=== PATIENT | female | born 1980 | race Hispanic/Latino ===

== ENCOUNTER 2017-05-01 12:54 | Emergency (ER) | payer BC, OTHER ==
[2017-05-01 13:15] VITALS: O2SAT 100
--- NOTE | 2017-05-01 14:30 | C.PDOC ---
History Of Present Illness The patient reports 2 week history of pain to the right breast. Patient reports that she does a lot of cleaning and lifting of a heavy on that side. Then reports that she developed a painful area above the right breast. Denies nipple drainage, rash, fever, trauma, chest pain, or SOB. Time Seen by Provider: 05/01/17 13:50 Chief Complaint (Nursing): Breast Problem History Per: Patient History/Exam Limitations: no limitations Current Symptoms Are (Timing): Still Present Severity: Mild Past Medical History Vital Signs: Last Vital Signs Temp 98.6 F 05/01/17 14:57 Pulse 64 05/01/17 14:57 Resp 18 05/01/17 14:57 BP 123/70 05/01/17 14:57 Pulse Ox 100 05/01/17 14:57 - Medical History PMH: HTN (PREHYPERTENSIVE) Family History: States: Other Other Family History: No family history of breast or ovarian cancer - Social History Hx Tobacco Use: Yes Hx Alcohol Use: Yes Hx Substance Use: No - Immunization History Hx Tetanus Toxoid Vaccination: No Hx Influenza Vaccination: No Hx Pneumococcal Vaccination: No Review Of Systems Except As Marked, All Systems Reviewed And Found Negative. Physical Exam - Physical Exam Appears: Non-toxic, No Acute Distress Skin: Normal Color, Dry, No Rash Head: Atraumatic, Normacephalic Eye(s): bilateral: Normal Inspection Oral Mucosa: Moist Neck: Normal ROM, Supple Chest: Symmetrical, Other ((+) muscle spasm to the right pectorialis with tenderness. Breasts: (-) mass, (-) erythema, (-) swelling, (-) nipple discharge , (-) rash. ) Cardiovascular: Rhythm Regular, No Friction Rub, No Murmur Respiratory: Normal Breath Sounds, No Rales, No Rhonchi, No Wheezing Back: Normal Inspection, No CVA Tenderness Extremity: Normal ROM, No Tenderness, No Swelling Neurological/Psych: Oriented x3, Normal Speech, Normal Motor Gait: Steady ED Course And Treatment O2 Sat by Pulse Oximetry: 100 Pulse Ox Interpretation: Normal Progress Note: The area of the lump was a muscle spasm. Patient has normal physical with no masses or signs of infection/abscess. Disposition - Disposition Referrals: Zuri Martinez APN [Advanced Practice Nurse] - Disposition: HOME/ ROUTINE Disposition Time: 14:31 Condition: GOOD Additional Instructions: Follow up with the medical doctor within 1-2 days. Return if worsened Prescriptions: Ibuprofen [Motrin] 600 mg PO TID #21 tab Instructions: Breast Care for the Non-breast Feeding Woman (ED) Forms: [facility] (Danish) - Clinical Impression Clinical Impression: Pain of breast, Muscle spasm
[2017-05-01 15:10] VITALS: BP 123/70; PULSE 64; RESP 18; TEMP 98.6
== END 2017-05-01 14:57 | disposition home or self-care (01) ==
LOC: C.ER 12:54
DX: N64.4 Mastodynia (principal); M62.838 Other muscle spasm; I10 Essential (primary) hypertension; Z87.891 Personal history of nicotine dependence